=== PATIENT | female | born 1975 | race Caucasian/White ===

== ENCOUNTER 2016-08-29 21:31 | Emergency (ER) | payer MEDICARE, MEDICAID | END 2016-08-29 23:29 | disposition home or self-care (01) | LOC: D.ER 21:31 | DX: J20.9 Acute bronchitis, unspecified (principal); R16.0 Hepatomegaly, not elsewhere classified; R16.1 Splenomegaly, not elsewhere classified ==

== ENCOUNTER 2016-12-31 22:55 | Emergency (ER) | payer MEDICARE, MEDICAID ==
[2017-01-01 00:23] LABS: BASOPHILS 0.2 % (0-2); EOSINOPHILS 1.7 % (0-7); HEMATOCRIT 39.5 % (36.0-48.0); IMMATURE GRANULOCYTES 0.4 % (0-5); LYMPHOCYTES 25.9 % (15-50); MCH 25.4 pg (26.0-34.0); MCHC 30.4 g/dL (31.0-37.0); MCV 83.5 fL (80.0-100.0); MEAN PLATELET VOLUME 10.7 fL (7.4-10.4); MONOCYTES 5.8 % (2-11); RBC 4.73 10x6/uL (4.00-5.40); RDW 15.6 % (11.5-14.5); WBC 11.5 10x3/uL (4.8-10.8)
[2017-01-01 00:26] LABS: PLATELET COUNT 337 10x3/uL (130-400)
[2017-01-01 00:42] LABS: ALBUMIN 3.2 g/dL (3.4-5.0); ANION GAP 13.6 mmol/L (8-16); BILIRUBIN - TOTAL 0.35 mg/dL (0.2-1.3); CARBON DIOXIDE 26.6 mmol/L (21.0-32.0); CREATININE - SERUM 1.1 mg/dL (0.6-1.3); POTASSIUM - SERUM 4.2 mmol/L (3.5-5.1); PROTEIN - SERUM 7.9 g/dL (6.4-8.2)
== END 2017-01-01 01:30 | disposition home or self-care (01) ==
LOC: D.ER 22:55
PROVIDERS: Family Medicine
DX: I50.9 Heart failure, unspecified (principal); E66.9 Obesity, unspecified

== ENCOUNTER → 2017-02-07 13:17 | Outpatient (CLI) | payer MEDICARE, MEDICAID ==
--- NOTE | 2017-02-08 10:17 | EC ---
PATIENT:JONNY MOBLEY DATE OF SERVICE: 02/07/17 SEX: F MEDICAL RECORD: [id number] DATE OF : 73 LOCATION[facility] AGE OF PATIENT: 41 ADMISSION DATE: 02/07/17 REFERRING PHYSICIAN: INTERPRETING PHYSICIAN: SULLY OLIVARES MD ECHOCARDIOGRAM REPORT ECHO CHARGES 4 ECHO COMPLETE CLINICAL DIAGNOSIS: EDEMA ECHOCARDIOGRAPHIC MEASUREMENTS (adult normal given) AC root (d.<3.7cm) 2.9 LV Septum d (<1.2 cm> 1.3 Valve Excursion 2.0 LV Septum (systole) 2.1 Left Atria (s.<4.0cm> 4.1 LVPW d(<1.2cm) 1.2 RV (d.<2.3cm) 2.9 LVPW (sytole) 2.1 LV diastole(<5.6CM) 5.4 MV E-F(>70mm/sec) LV systole 3.4 LVOT Diameter 2.2 MV exc.(>10mm) Est.ejection fraction (50-75%) Pericardial Effusion N DOPPLER: LVIT A 73.0 E 90.0 LA RVSP 20.4 LVOT 100 AOP1/2T Asc. Ao 153 RVOT 72.0 RA PA 116 AV Gradient Peak 9.3 AV Mean 5.2 AV Area 2.0 MV Gradient Peak 4.1 MV Mean 1.8 MV Area COMMENTS: Advisor Advocate Angel Co Founder: Hoang CARD Tuber Machine Operator Helper:Leslie Jacob TAPE# PACS DATE OF SERVICE: 02/07/2017 Echocardiogram FINDINGS: 1. Left ventricular chamber size is within normal limits. Left ventricular systolic function is normal. Overall ejection fraction estimated at 55%. 2. Left atrium is enlarged at 4.1 cm. Right atrium and right ventricular chamber sizes are within normal limits. 3. Valvular structures have normal structure and motion. ECHOCARDIOGRAM REPORT [id number] JONNY MOBLEY 4. Doppler interrogation reveals no significant valvular insufficiency or stenosis and pulmonary systolic pressure is normal estimated at 20 mmHg. 5. No evidence of pericardial effusion or left ventricular thrombus. TRANSINT:[id number] Voice Confirmation ID: [id number] DOCUMENT ID: [id number] SULLY OLIVARES MD at 1017 CC: [id number] DICTATION DATE: 02/07/17 1720 SHEET FED PRINTER: 02/08/17 0154 DEP CLI 02/07/17 [facility] [address] [id number]
== END | disposition home or self-care (01) ==
LOC: D.ECHO 13:00
DX: R60.9 Edema, unspecified (principal)

== ENCOUNTER 2017-08-21 21:11 | Emergency (ER) | payer MEDICARE, MEDICAID ==
[2017-08-21 22:35] LABS: BASOPHILS 0.1 % (0-2); EOSINOPHILS 2.1 % (0-7); HEMATOCRIT 35.1 % (36.0-48.0); HEMOGLOBIN 10.4 g/dL (12-16); LYMPHOCYTES 29.4 % (15-50); MCH 24.4 pg (26.0-34.0); MCHC 29.6 g/dL (31.0-37.0); MCV 82.2 fL (80.0-100.0); MONOCYTES 4.7 % (2-11); NEUTROPHILS 62.7 % (40-80); PLATELET COUNT 297 10x3/uL (130-400); RBC 4.27 10x6/uL (4.00-5.40); RDW 17.7 % (11.5-14.5); WBC 9.9 10x3/uL (4.8-10.8)
[2017-08-21 22:49] LABS: ALBUMIN 2.9 g/dL (3.4-5.0); ALKALINE PHOSPHATASE 85 U/L (46-116); ALT (SGPT) 31 U/L (10-68); BILIRUBIN - TOTAL 0.46 mg/dL (0.2-1.3); CALC OSMOLALITY 280 mosm/kg (275-300); CALCIUM 8.7 mg/dL (8.5-10.1); CHLORIDE - SERUM 102 mmol/L (98-107); POTASSIUM - SERUM 3.7 mmol/L (3.5-5.1); SODIUM 137 mmol/L (136-145); UREA NITROGEN 15 mg/dL (7-18); eGFR NON AFRICAN AMERICAN 64 mL/min (90-120)
[2017-08-21 22:51] LABS: GLUCOSE 211 mg/dL (74-106)
[2017-08-21 22:57] LABS: CREATINE KINASE 116 UL (21-215); PRO BNP 26 pg/mL (0-125)
[2017-08-21 22:58] LABS: TROPONIN-I < 0.017 ng/mL (0.000-0.060)
== END 2017-08-21 23:41 | disposition home or self-care (01) ==
LOC: D.ER 21:11
PROVIDERS: Family Medicine
DX: L03.90 Cellulitis, unspecified (principal); E66.9 Obesity, unspecified; I89.0 Lymphedema, not elsewhere classified; I50.9 Heart failure, unspecified

== ENCOUNTER → 2019-03-23 08:54 | Outpatient (CLI) | payer MEDICARE, MEDICAID | END | disposition home or self-care (01) | LOC: D.NM 03-08 09:30 | PROVIDERS: ATTEND Surgery | DX: R10.84 Generalized abdominal pain (principal) ==